=== PATIENT | male | born 1975 | race Two or more races ===

== ENCOUNTER 2018-08-22 04:25 | Emergency (ER) ==
[~2018-08-22] VITALS: Ht 188 cm; Wt 106.6 kg
--- NOTE | 2018-08-22 04:30 | NUR ---
PT BIB [facility], CAME IN WITH C/O DIZZINESS AND NONRADIATING MIDSTERNAL CP 07/09 STATES" FEELS BETTER NOW".SEEN BY .
[2018-08-22 04:49] LABS: BASOPHILS # (AUTO) 0.1 /CMM (0.0-0.2); HEMATOCRIT 44 % (39-51); HEMOGLOBIN 15.2 g/dL (13.5-17.5); LYMPHOCYTES # (AUTO) 1.3 /CMM (0.8-4.8); LYMPHOCYTES % (AUTO) 21.1 % (20.0-44.0); MEAN CORPUSCULAR HGB CONC 35 g/dl (31.0-36.0); MEAN CORPUSCULAR VOLUME 91 fL (80-96); MONOCYTES # (AUTO) 0.5 /CMM (0.1-1.30); NEUTROPHILS # (AUTO) 4.2 /CMM (1.8-8.9); NEUTROPHILS % (AUTO) 68.9 % (43.0-81.0); PLATELET COUNT (AUTO) 276 /CMM (150-450); WHITE BLOOD COUNT (AUTO) 6.2 K/uL (4.3-11.0)
[2018-08-22] MEDS ORDERED: MECLIZINE HCL 12.5 MG TABLET ONE (04:54)
[2018-08-22 04:57] LABS: CALCIUM, SERUM 8.8 mg/dL (8.5-10.1); CREATININE 1.1 mg/dL (0.6-1.3); POTASSIUM 3.8 mmol/L (3.5-5.1)
[2018-08-22] MEDS ORDERED: MECLIZINE HCL 25 MG TABLET PO ONE (05:00)
--- NOTE | 2018-08-22 05:09 | NUR ---
pt refused antivert .states " I took over the counter pills for motionsickness, dramamine around 2:00am before coming here and feel anxious". MD. Sheldon made aware.
[2018-08-22] MEDS ORDERED: LORAZEPAM 1 MG TABLET ONE (05:15)
--- NOTE | 2018-08-22 05:18 | NUR ---
pt states " i have sleep apnea, feels alittle sob if my mouth is closed and breath through my nose " no distress present sp02 100% RA, resp 18, offered 02 2lpm for comfort patient agreed, denies using any cpap machine at home states " i was going to get checked in 2 weeks."
[2018-08-22] MEDS ORDERED: LORAZEPAM 1 MG TABLET PO ONE (05:30)
--- NOTE | 2018-08-22 05:41 | NUR ---
pt ambulated to the bathroom with steady gait.
--- NOTE | 2018-08-22 05:50 | NUR ---
patient discharged ,VSS, patient education provided, verbalizes he understands, jonas was called for patient. ambulated when discharge in stable condition.
[2018-08-22 06:01] VITALS: BP 137/78
== END 2018-08-22 05:50 | disposition home or self-care (01) ==
LOC: ER 04:28
DX: R42 Dizziness and giddiness (principal); F41.9 Anxiety disorder, unspecified; R94.31 Abnormal electrocardiogram [ECG] [EKG]; Z98.890 Other specified postprocedural states
CPT/HCPCS: 36415; 80048-TC; 85025-TC; J8597